=== PATIENT | male | born 1980 | race Caucasian/White ===

== ENCOUNTER → 2016-09-20 | Outpatient (CLI) | payer OTHER ==
[~2016-09-20] MED LIST: OMNIPAQUE 350 MG/ML, 75ML BOTTLE ONE; VALS320T2 PO
== END | disposition home or self-care (01) ==
LOC: CFH 15:38
PROVIDERS: ATTEND Internal Medicine Hematology & Oncology
DX: C81.92 Hodgkin lymphoma, unspecified, intrathoracic lymph nodes (principal); K76.0 Fatty (change of) liver, not elsewhere classified; K82.0 Obstruction of gallbladder; R59.0 Localized enlarged lymph nodes
CPT/HCPCS: 71260; 82565; Q9967

== ENCOUNTER → 2016-10-25 | Outpatient (CLI) | payer OTHER ==
[~2016-10-25] MED LIST changes: -OMNIPAQUE 350 MG/ML, 75ML BOTTLE ONE
== END | disposition home or self-care (01) ==
LOC: CFH 16:07
PROVIDERS: ATTEND Internal Medicine Hematology & Oncology
DX: I82.721 Chronic embolism and thrombosis of deep veins of right upper extremity (principal)

== ENCOUNTER → 2016-12-20 | Outpatient (CLI) | payer OTHER | END | disposition home or self-care (01) | LOC: ROC 15:34 | PROVIDERS: ATTEND Radiology Radiation Oncology | DX: C85.90 Non-Hodgkin lymphoma, unspecified, unspecified site (principal) | CPT/HCPCS: 99212; G0463 ==

== ENCOUNTER → 2019-07-23 | Outpatient (CLI) | payer BC | END | disposition home or self-care (01) | LOC: CVU 15:41 | PROVIDERS: ATTEND Internal Medicine Cardiovascular Disease | DX: I34.0 Nonrheumatic mitral (valve) insufficiency (principal) | CPT/HCPCS: 93306; 93356 ==